=== PATIENT | male | born 1965 | race Caucasian/White ===

== ENCOUNTER → 2017-07-27 | Outpatient (REF) ==
[~2017-07-27] MED LIST: NORCO 325 MG-7.1 TAB PO; SEROQUEL 1100 MG/TAB PO; SEROQUEL 2525 MG/TAB PO; WELLBUTRIN SR200 MG PO
[2017-07-27 18:54] LABS: PSA-TOTAL 1.72 ng/mL (0-4)
[2017-07-27 19:13] LABS: THYROID STIMULATING HORMONE 2.75 uIU/mL (0.465-4.680)
== END ==
LOC: ZLAB.WCH 18:03
PROVIDERS: Internal Medicine
DX: Z01.89 Encounter for other specified special examinations (principal)
CPT/HCPCS: G0103

== ENCOUNTER → 2018-06-24 | Outpatient (REF) ==
[2018-06-24 16:40] LABS: THYROID STIMULATING HORMONE 1.67 uIU/mL (0.465-4.680)
[2018-06-24 17:56] LABS: PSA-TOTAL 1.66 ng/mL (0-4)
== END ==
LOC: ZLAB.WCH 15:55
PROVIDERS: Internal Medicine
DX: Z01.89 Encounter for other specified special examinations (principal)
CPT/HCPCS: G0103